=== PATIENT | female | born 1980 | race American Indian/Alaskan Native ===

== ENCOUNTER 2017-07-03 23:19 | Emergency (ER) | payer MEDICAID ==
[2017-07-04 00:41] VITALS: BMI 20.2
[2017-07-04 00:48] VITALS: BP 118/77; RESP 18; O2SAT 98
[2017-07-04] MEDS ORDERED: Sodium Chloride 0.9% 1,000 ML IV STA (01:47)
--- NOTE | 2017-07-04 01:48 | ED PDOC ---
Arrival/HPI - General Chief Complaint: Back Pain Time Seen by Provider: 07/04/17 01:25 Historian: Patient - History of Present Illness Narrative History of Present Illness (Text): 07/04/17 01:49 Berta Rueda is a 36 year old female, with a history of sickle cell disease, and migraines, presents to the emergency department complaining of left flank pain for past 2 days. Patient states she was initially treated for a UTI 3 weeks ago, which resolved after talking antibiotics. However, patient reports that flank pain presented 2 days ago when she was evaluated [place] [facility] [place] Leva[place]. States that symptoms have now improved despite starting the antibiotic. Reports that symptoms are associated with nausea and increased urinary frequency. Denies fever, chills, headache, dizziness, chest pain, SOB, abdominal pain, vomiting, diarrhea, hematuria or any other complaints at this time. Time/Duration: Other (2 days ) Symptom Onset: Gradual Severity Level: Mild Activities at Onset: Light Past Medical History - Provider Review Nursing Documentation Reviewed: Yes - Infectious Disease Hx of Infectious Diseases: None - Cardiac Hx Heart Murmur: Yes - Neurological Hx Migraine: Yes - Hematological/Oncological Hx Sickle Cell Trait: Yes - Psychiatric Hx Substance Use: No - Surgical History Hx Section: Yes (x2) Hx Dilation and Curettage: Yes - Anesthesia Hx Anesthesia: Yes Hx Anesthesia Reactions: No Hx Malignant Hyperthermia: No Family/Social History - Physician Review Nursing Documentation Reviewed: Yes Family/Social History: No Known Family HX Smoking Status: Heavy Smoker > 10 Cigarettes Daily Hx Alcohol Use: Yes Frequency of alcohol use: Few days per week Hx Substance Use: No Allergies/Home Meds Allergies/Adverse Reactions: Allergies No Known Allergies Allergy (Verified 07/04/17 00:41) Home Medications: Home Meds Medication Instructions Recorded Confirmed levoFLOXacin [Levaquin] 1 tab PO DAILY 07/04/17 07/04/17 Review of Systems - Physician Review All systems were reviewed & negative as marked: Yes - Review of Systems Constitutional: Normal. absent: Fatigue, Fevers Respiratory: Normal. absent: SOB, Cough, Sputum Cardiovascular: Normal. absent: Chest Pain, Palpitations Gastrointestinal: Nausea. absent: Abdominal Pain, Diarrhea, Vomiting Musculoskeletal: Back Pain (left flank pain ) Neurological: Normal. absent: Headache, Dizziness Psychiatric: Normal Physical Exam Vital Signs Reviewed: Yes Vital Signs Temp Pulse Resp BP Pulse Ox 07/04/17 00:46 98.2 F 87 18 118/77 98 Temperature: Afebrile Blood Pressure: Normal Pulse: Regular Respiratory Rate: Normal Appearance: Positive for: Well-Appearing, Non-Toxic, Comfortable Pain Distress: None Mental Status: Positive for: Alert and Oriented X 3 - Systems Exam Head: Present: Atraumatic, Normocephalic Extroacular Muscles: Present: EOMI Conjunctiva: Present: Normal Mouth: Present: Moist Mucous Membranes Neck: Present: Normal Range of Motion Respiratory/Chest: Present: Clear to Auscultation, Good Air Exchange. No: Respiratory Distress, Accessory Muscle Use Cardiovascular: Present: Regular Rate and Rhythm, Normal S1, S2. No: Murmurs Abdomen: Present: Normal Bowel Sounds. No: Tenderness, Distention, Peritoneal Signs Back: No: CVA Tenderness Upper Extremity: Present: Normal Inspection. No: Cyanosis, Edema Lower Extremity: Present: Normal Inspection. No: Edema Neurological: Present: GCS=15, CN II-XII Intact, Speech Normal Skin: Present: Warm, Dry, Normal Color. No: Rashes Psychiatric: Present: Alert, Oriented x 3, Normal Insight, Normal Concentration Medical Decision Making ED Course and Treatment: 07/04/17 01:59 Impression: A 36 year old female who presents to the emergency department complaining of left flank pain for 2 days. Differential Diagnosis included but are not limited to: renal colic vs pyelo vs. UTI vs. Musculoskeletal Plan: -- Labs -- IV fluids -- HCG -- Urinalysis -- Reassess and disposition Progress Notes: 07/04/17 04:41 EXAM: CT Abdomen and Pelvis Without Intravenous Contrast Dictated and Authenticated by: Elio Read MD FINDINGS: Limitations: Motion artifact - mild. Lower thorax: Minimal linear atelectasis/scarring. Mild groundglass opacities within periphery LEFT upper, LEFT lower lobes. ABDOMEN: Liver: Unremarkable. Gallbladder and bile ducts: No calcified stones. No ductal dilation. Pancreas: Unremarkable. No ductal dilation. Spleen: No splenomegaly. Adrenals: No mass. Kidneys and ureters: No renal calculi. No hydronephrosis. Stomach and bowel: No definite mural thickening. No obstruction. Appendix: Normal caliber. No inflammation. PELVIS: Bladder: Unremarkable. No stones. Reproductive: Unremarkable as visualized. ABDOMEN and PELVIS: Intraperitoneal space: No significant fluid collection. No free air. Bones/joints: No acute fracture. Soft tissues: Mild focal eventration midline anterior abdominal wall. Vasculature: Unremarkable. No aneurysm. Lymph nodes: No pathologically enlarged lymph nodes. IMPRESSION: 1. No CT evidence of urolithiasis. 2. Groundglass opacities, nonspecific. 3. Incidental/non-acute findings are described above. 07/04/17 04:59 On reevaluation, patient states than pain has improved markedly. States she is comfortable with the plan to discharge home. Patient is stable for discharge. Advised to present to emergency department for new/worsening symptoms and follow up with PMD within few days. - Lab Interpretations Lab Results: 07/04/17 01:15 07/04/17 01:15 Lab Results 07/04/17 01:15: WBC 6.6, RBC 4.09, Hgb 12.6, Hct 35.8 L, MCV 87.5, MCH 30.8, MCHC 35.2, RDW 12.9, Plt Count 155, MPV 11.2 H 07/04/17 01:15: Sodium 146, Potassium 3.5 L, Chloride 107, Carbon Dioxide 23, Anion Gap 20, BUN 6 L, Creatinine 0.6, Est GFR ( Amer) > 60, Est GFR (Non -Af Amer) > 60, Random Glucose 87, Calcium 9.0, Total Bilirubin 0.2, AST 45 H, ALT 46, Alkaline Phosphatase 57, Total Protein 7.8, Albumin 4.6, Globulin 3.2, Albumin/Globulin Ratio 1.4 07/04/17 01:15: Urine Color Yellow, Urine Appearance Clear, Urine pH 6.0, Ur Specific Reform 1.010, Urine Protein Negative, Urine Glucose (UA) Negative, Urine Ketones Negative, Urine Blood Small H, Urine Nitrate Negative, Urine Bilirubin Negative, Urine Urobilinogen 0.2, Ur Leukocyte Esterase Negative, Urine RBC 0 - 2, Urine WBC 0 - 2, Ur Epithelial Cells 0 - 2, Urine HCG, Qual Negative - RAD Interpretation Radiology Orders: 07/04/17 02:57 ABD & PELVIS W/O PO OR IV CONT [CT] Stat - Medication Orders Current Medication Orders: Discontinued Medications Sodium Chloride (Sodium Chloride 0.9%) 1,000 mls @ 999 mls/hr IV .Q1H1M STA Stop: 07/04/17 02:47 Last Admin: 07/04/17 02:14 Dose: 999 mls/hr Ketorolac Tromethamine (Toradol) 30 mg IVP ONCE ONE Stop: 07/04/17 02:57 Last Admin: 07/04/17 03:50 Dose: 30 mg - Tedibe Statement The provider has reviewed the documentation as recorded by the Colten Fox Provider Attestation: All medical record entries made by the Colten were at my direction and personally dictated by me. I have reviewed the chart and agree that the record accurately reflects my personal performance of the history, physical exam, medical decision making, and the department course for this patient. I have also personally directed, reviewed, and agree with the discharge instructions and disposition. Disposition/Present on Arrival - Present on Arrival Any Indicators Present on Arrival: No History of DVT/PE: No History of Uncontrolled Diabetes: No Urinary Catheter: No History of Decub. Ulcer: No History Surgical Site Infection Following: None - Disposition Have Diagnosis and Disposition been Completed?: Yes Diagnosis: Flank pain Disposition: HOME/ ROUTINE Disposition Time: 04:55 Patient Plan: Discharge Patient Problems: Current Active Problems Problem Status Onset Flank pain Acute Condition: GOOD Discharge Instructions (ExitCare): Flank Pain (ED) Additional Instructions: Drink plenty of liquids/Advil as directed/follow up with your doctor this week Referrals: Sina Clark [Primary Care Provider] - Follow up with primary Forms: [facility] ([place])
[2017-07-04 02:19] LABS: HEMOGLOBIN 12.6 g/dL (12.0-16.0); MEAN CELL VOLUME 87.5 fl (80.0-105.0); MEAN CORPUSCULAR HEMOGLOBIN 30.8 pg (25.0-35.0); MEAN CORPUSCULAR HGB CONC 35.2 g/dl (31.0-37.0); MEAN PLATELET VOLUME 11.2 fl (7.0-11.0); RBC 4.09 10^6/uL (3.5-6.1); RED CELL DISTRIBUTION WIDTH 12.9 % (11.5-14.5); WHITE BLOOD COUNT 6.6 10^3/ul (4.5-11.0)
[2017-07-04 02:20] LABS: URINE BILIRUBIN NEGATIVE (NEGATIVE); URINE BLOOD SMALL (NEGATIVE); URINE GLUCOSE (UA) NEGATIVE (NEGATIVE); URINE LEUKOCYTE ESTERASE NEGATIVE Leu/uL (NEGATIVE); URINE NITRATE NEGATIVE (NEGATIVE); URINE PROTEIN NEGATIVE mg/dL (<30 mg/dL); URINE UROBILINOGEN 0.2 E.U./dL (<1 E.U./dL)
[2017-07-04 02:30] LABS: ALB/GLOB RATIO 1.4 (1.1-1.8); ALBUMIN 4.6 g/dL (3.0-4.8); AST/SGOT 45 U/L (15-39); BLOOD UREA NITROGEN 6 mg/dL (7-21); GFR AFRICAN-AMERICAN > 60; GFR NON-AFRICAN AMERICAN > 60
[2017-07-04 02:32] LABS: URINE APPEARANCE CLEAR (CLEAR); URINE COLOR YELLOW (YELLOW)
[2017-07-04 02:35] LABS: HCG,QUALITATIVE URINE NEGATIVE (NEGATIVE)
[2017-07-04 02:38] LABS: ALT/SGPT 46 U/L (7-56); URINE EPITHELIAL CELLS 0 - 2 /hpf (0-5); URINE RBC 0 - 2 /hpf (0-2); URINE WBC 0 - 2 /hpf (0-6)
--- NOTE | 2017-07-04 04:36 | CT ---
EXAM: CT Abdomen and Pelvis Without Intravenous Contrast CLINICAL HISTORY: 36 years old, female; Pain; Abdominal pain; Generalized; Prior surgery; Additional info: Flank pain TECHNIQUE: Axial computed tomography images of the abdomen and pelvis without intravenous contrast. All CT scans at this facility use one or more dose reduction techniques, viz.: automated exposure control; ma/kV adjustment per patient size (including targeted exams where dose is matched to indication; i.e. head); or iterative reconstruction technique. Coronal and sagittal reformatted images were created and reviewed. COMPARISON: No relevant prior studies available. FINDINGS: Limitations: Motion artifact - mild. Lower thorax: Minimal linear atelectasis/scarring. Mild groundglass opacities within periphery LEFT upper, LEFT lower lobes. ABDOMEN: Liver: Unremarkable. Gallbladder and bile ducts: No calcified stones. No ductal dilation. Pancreas: Unremarkable. No ductal dilation. Spleen: No splenomegaly. Adrenals: No mass. Kidneys and ureters: No renal calculi. No hydronephrosis. Stomach and bowel: No definite mural thickening. No obstruction. Appendix: Normal caliber. No inflammation. PELVIS: Bladder: Unremarkable. No stones. Reproductive: Unremarkable as visualized. ABDOMEN and PELVIS: Intraperitoneal space: No significant fluid collection. No free air. Bones/joints: No acute fracture. Soft tissues: Mild focal eventration midline anterior abdominal wall. Vasculature: Unremarkable. No aneurysm. Lymph nodes: No pathologically enlarged lymph nodes. IMPRESSION: 1. No CT evidence of urolithiasis. 2. Groundglass opacities, nonspecific. 3. Incidental/non-acute findings are described above.
[2017-07-04 05:08] VITALS: PULSE 85; TEMP 98
== END 2017-07-04 05:08 | disposition home or self-care (01) ==
LOC: ED 23:19
DX: R10.9 Unspecified abdominal pain (principal); D57.1 Sickle-cell disease without crisis
CPT/HCPCS: 74176; 80053; 81001; 84703; 85027; 96374; 99283; J1885; J7040